=== PATIENT | female | born 1955 | race African-American/Black ===

== ENCOUNTER 2018-08-04 02:52 | Inpatient (IN) | payer OTHER ==
[2018-08-04] VITALS (7 sets, daily range): BP systolic 165–241; BP diastolic 81–130
[~2018-08-04] VITALS: Ht 149.9 cm; Wt 86.6 kg
[2018-08-04] MEDS ORDERED: COZAAR 25 MG TA25 M1 PO (02:59)
[2018-08-04 05:03] LABS: ABSOLUTE NEUTROPHILS 4.7 thou/uL (1.4-8.2); BASOPHILS 0.4 % (0.0-2.0); EOSINOPHILS 1.6 % (0.0-3.0); HEMATOCRIT 34.2 % (37.0-47.0); HEMOGLOBIN 11.5 gm/dL (12.0-15.0); LYMPHOCYTES 12.5 % (24.0-44.0); MCH 27.6 pg (26.0-34.0); MCHC 33.6 g/dL (28.0-37.0); MONOCYTES 9.2 % (1.0-8.0); PLATELET COUNT 240 thou/uL (150-400); POLYS 76.3 % (36.0-66.0); RBC 4.17 mil/uL (4.20-5.00); RDW 14.7 % (10.5-14.5); WBC 6.1 thou/uL (4.0-11.0)
[2018-08-04 05:10] LABS: CALCIUM 9.4 mg/dL (8.5-10.1); CREATININE 2.2 mg/dL (0.6-1.0); POTASSIUM 3.8 mmol/L (3.5-5.1)
[2018-08-04 05:18] LABS: TROPONIN-I 0.06 ng/mL (<0.06)
--- NOTE | 2018-08-04 07:33 | NUR ---
ATTEMPTED TO CALL REPORT AGAIN. FLOOR NURSE STATES THEY ARE STILL IN REPORT AND UNABLE TO TAKE ER REPORT AT THIS TIME. WILL CALL AGAIN IN 10 MINUTES.
--- NOTE | 2018-08-04 08:20 | NUR ---
REPORT CALLED TO HERBERT VILLARREAL. PT GOING TO CCU ROOM 204.
[2018-08-04 09:24] LABS: % SATURATION 18 % (20-39); IRON 36 ug/dL (50-170); TIBC 200 ug/dL (250-450)
--- NOTE | 2018-08-04 12:24 | 2DMMODE ---
[facility] [address] [place] [address] 2 D/M-MODE ECHOCARDIOGRAM Name: LOLAANDREW A Room #: 204-P ADM IN ..#: [id number] ������������� Admission: 08/04/18 ������������� Attend Phys: Andressa Whelan Discharge: ��� ������������� ��� Date of : 59 Date of Service: 08/04/18 1224 �� Report #: [id number] �������� ��������������������������������������������[id number] THIS REPORT FOR: //name// APPROVED REPORT Study performed: 08/04/2018 11:18:11 EXAM: Comprehensive 2D, Doppler, and color-flow Echocardiogram Patient Location: Bedside Room #: 204 Status: routine BSA: 1.76 HR: 91 bpm BP: 169/90 mmHg Rhythm: NSR Other Information Study Quality: Good Indications Hypertension/HDD 2D Dimensions RVDd: 47.45 mm IVSd: 15.48 (7-11mm) LVOT Diam: 19.24 (18-24mm) LVDd: 43.92 mm PWd: 13.69 (7-11mm) Ascending Ao: 32.73 (22-36mm) LVDs: 27.59 (25-40mm) Aortic Root: 28.95 mm IVC: 16.00 mm Volumes Left Atrial Volume (Systole) Single Plane 4CH: 86.24 mL Single Plane 2CH: 55.76 mL LA ESV Index: 42.00 mL/m2 Aortic Valve AoV Peak Winston.: 1.98 m/s AO Peak Gr.: 15.70 mmHg LVOT Max P.12 mmHg LVOT Max V: 1.13 m/s MARY KAY Vmax: 1.66 cm2 Mitral Valve E/A Ratio: 1.9 MV Decel. Time: 128.64 ms MV E Max Winston.: 1.03 m/s [facility] [address] [place] [address] 2 D/M-MODE ECHOCARDIOGRAM Name: ANDREW DAVILA Room #: 204-P [facility] IN [facility]#: [id number] ������������� Admission: 08/04/18 ������������� Attend Phys: Andressa Whelan Discharge: ��� ������������� ��� Date of : 59 Date of Service: 08/04/18 1224 �� Report #: [id number] �������� ��������������������������������������������[id number] MV A Winston.: 0.55 m/s MV PHT: 37.30 ms IVRT: 55.36 ms Pulmonary Valve PV Peak Winston.: 1.09 m/s PV Peak Gr.: 4.79 mmHg Tricuspid Valve TR Peak Winston.: 2.84 m/s TR Peak Gr.: 32.23 mmHg PA Pressure: 37.00 mmHg Left Ventricle The left ventricle is normal size. Mild to moderate concentric left ventricular hypertrophy. Mild concentric left ventricular hypertrophy. The left ventricular systolic function is normal. The left ventricular ejection fraction is within the normal range. LVEF is 55-60%. Moderate diastolic dysfunction is present (pseudonormal filling). Right Ventricle Right ventricle is dilated. The right ventricular systolic function is normal. Atria Left atrium is dilated. Right atrium is dilated. Aortic Valve The aortic valve is normal in structure. No aortic regurgitation is present. There is no aortic valvular stenosis. Mitral Valve The mitral valve is normal in structure. Mild mitral regurgitation. No evidence of mitral valve stenosis. Tricuspid Valve The tricuspid valve is normal in structure. Mild tricuspid regurgitation. Pulmonic Valve The pulmonary valve is normal in structure. Trace pulmonic regurgitation. Great Vessels The aortic root is normal in size. IVC is normal in size and collapses >50% with inspiration. [facility] [address] [place] [address] 2 D/M-MODE ECHOCARDIOGRAM Name: ANDREW DAVILA Room #: 204-P [facility] IN [facility].#: [id number] ������������� Admission: 08/04/18 ������������� Attend Phys: Andressa Whelan Discharge: ��� ������������� ��� Date of : 59 Date of Service: 08/04/18 1224 �� Report #: [id number] �������� ��������������������������������������������[id number] Pericardium There is no pericardial effusion. <Conclusion> The left ventricle is normal size. LVEF is 55-60%. Right ventricle is dilated. Left atrium is dilated. Right atrium is dilated. The mitral valve is normal in structure. Mild mitral regurgitation. The tricuspid valve is normal in structure. Mild tricuspid regurgitation. The pulmonary valve is normal in structure. Trace pulmonic regurgitation. There is no pericardial effusion. ��������������������������������������������� <ELECTRONICALLY SIGNED> ���������������������������������������� By: To Ortiz MD ��������������������������������������������� 08/04/18 1224 1224 1224 To Ortiz MD /INF
--- NOTE | 2018-08-04 18:18 | NUR ---
VSS REMAINS NSR, PT NOW OFF CARDENE, BP REMAINS 165-172/90-99, DR TOMAS AWARE. LUNGS CLEAR, RA SAT IS 94%. UP IN ROOM WITHOUT DIFFICULTY. WILL CONTINUE TO MONITER AND CARE FOR PT PER PLAN OF CARE
[2018-08-05 03:18] LABS: ABSOLUTE NEUTROPHILS 6.5 thou/uL (1.4-8.2); BASOPHILS 0.8 % (0.0-2.0); EOSINOPHILS 1.6 % (0.0-3.0); HEMATOCRIT 33.8 % (37.0-47.0); HEMOGLOBIN 11.2 gm/dL (12.0-15.0); LYMPHOCYTES 25.7 % (24.0-44.0); MCH 27.4 pg (26.0-34.0); MCHC 33.3 g/dL (28.0-37.0); MCV 82.2 fL (80.0-100.0); MONOCYTES 7.9 % (1.0-8.0); PLATELET COUNT 283 thou/uL (150-400); RBC 4.11 mil/uL (4.20-5.00); WBC 10.8 thou/uL (4.0-11.0)
[2018-08-05 03:24] LABS: CALCIUM 9.1 mg/dL (8.5-10.1); CREATININE 2.3 mg/dL (0.6-1.0); POTASSIUM 3.4 mmol/L (3.5-5.1)
--- NOTE | 2018-08-05 04:06 | NUR ---
PATIENTS CARES WERE ASSUMED AT SHIFT CHANGE. PATIENT WAS ASSESSED AND MEDS WERE PASSED. PATIENT HAS HAD A RESTFUL NIGHT. SLEPT MOST OF THIS SHIFT.HOURLY ROUNDING WAS DONE. THE BED IS IN A LOW AND LOCKED POSITION
[2018-08-05 04:20] VITALS: BP 180/110
--- NOTE | 2018-08-05 07:51 | EKG ---
[place] [address] [facility] [place] [address] ELECTROCARDIOGRAM REPORT Name: ANDREW DAVILA Room #: 204-P ADM IN M.R.#: [id number] ������������������ Admission: 08/04/18 ������������������ Attend Phys: Leighton Jacobs DO Discharge: ������������������ Date of : 59 Report #: [id number] ����������������������������������������������������������������� [id number] THIS REPORT FOR: //name// [facility] ED Test Date: 2018-08-04 Test Time: 03:11:07 Pat Name: ANDREW DAVILA Department: Room: [facility] Gender: F Assisted Living Executive Director: bora chopra : 1955 Requested By: Adrian Trammell Order Number: [id number] MD: Anthony Haney Measurements Intervals [place] Rate: 105 P: 60 TX: 166 QRS: -11 QRSD: 100 T: 112 QT: 354 QTc: 468 Interpretive Statements Sinus tachycardia Right atrial abnormality Compared to ECG 11/25/2006 14:26:06 Nonspecific change in the ST and T-wave segments Electronically Signed On 08-05-2018 7:51:46 CDT by Anthony Haney [email or web address] ��������������������������������������������� <ELECTRONICALLY SIGNED> ���������������������������������������� By: Anthony Haney MD, [facility] ��������������������������������������������� 08/05/18 075 0 0 Anthony Haney MD, [facility] /EPI
[2018-08-05 08:20] VITALS: BP 189/115
--- NOTE | 2018-08-05 08:52 | H ---
[facility] [place] [address] [place] [address] HISTORY AND PHYSICAL Name: ANDREW DAVILA Room #: 204-P ADM IN M.R.#: [id number] Admission: 08/04/18 ������������������ Attend Phys: Leighton Jacobs DO Discharge: ������������������ Date of : 59 Report #: [id number] THIS REPORT FOR: //name// CC: Leighton Nuñez MD DATE OF SERVICE: 08/04/2018 ROOM: 204. HISTORY OF PRESENT ILLNESS: This 63-year-old black female who was admitted through the Emergency Room with accelerated hypertension, shortness of breath and pulmonary edema. She says she ran out of losartan a week ago and for the last 2 days has been having exertional dyspnea, especially when she tries to walk steps. Her past history included hypertension, but no previous hospitalizations other than for 2 pregnancies, one miscarriage and one D and C. MEDICATIONS ON ADMISSION: Losartan 50 mg daily. ALLERGIES: None. SYSTEM REVIEW: She works for a [employer] service, has to walk steps daily. Denies. surgeries other than D and C. Denies history of diabetes, previous heart disease, kidney disease, ulcers, female disease or arthritis. SOCIAL HISTORY: Lives alone. Her son comes to visit her. She does not smoke. She drinks wine occasionally and drinks 2 cups of caffeine daily, also does eat some salt. PHYSICAL EXAMINATION: GENERAL: Currently a pleasant, overweight black female, alert and in no distress. VITAL SIGNS: Initial BP was 252/156, currently 151/77. Pulse 104, respirations 19, temperature afebrile. HEAD: No rash or trauma. EARS, NOSE AND THROAT: No lesions. EYES: No icterus. NECK: Supple, without bruits. LUNGS: Clear. Cough is dry. HEART: Rhythm regular, without definite gallop. BREASTS: No masses. ABDOMEN: Obese, soft, without mass or tenderness. EXTREMITIES: No edema or cyanosis. NEUROLOGIC: She is up on her feet without difficulty or lateralized deficits. [facility] [address] [place] [address] HISTORY AND PHYSICAL Name: ANDREW DAVILA Room #: [facility] IN [facility].#: [id number] Admission: 08/04/18 ������������������ Attend Phys: Leighton Jacobs, DO Discharge: ������������������ Date of : 59 Report #: [id number] She is alert and very pleasant. Chest x-ray shows mild pulmonary edema and cardiomegaly. LABORATORY DATA: Hemoglobin 11.5, MCV 82. White count 6000, platelets 240,000. Sodium 143, potassium 3.8, CO2 of 28, BUN 35, creatinine 2.2, blood sugar 108, calcium 9.4. Troponin 0.06. BNP 8400. IMPRESSION: 1. Accelerated hypertension with pulmonary edema. 2. Obesity. PLAN: I have asked Cardiology to see to help with blood pressure management. We will plan on repeating renal parameters in the morning. The patient says she saw Dr. Nuñez a month ago, at which time her blood pressure was stable, but she ran out of her blood pressure pills a week ago. PROGNOSIS: Guarded. ��������������������������������������������� <ELECTRONICALLY SIGNED> ���������������������������������������� By: Leighton Jacobs DO ��������������������������������������������� 08/05/18 0852 0940 Leighton Jacobs DO /nt
--- NOTE | 2018-08-05 11:23 | NUR ---
Assumed pt care this am, pt was out of the room for her US Renal and doppler exam. Pt is up at aroldo and walked the halls. seen by MD additional medication given for BP to continue monitoring through out the day. No signs or verbalizations of distress have been noted. POC followed
[2018-08-05 11:29] VITALS: BP 188/117
[2018-08-05 20:00] VITALS: BP 180/95
[2018-08-06] VITALS: BP 178/106
[2018-08-06 03:51] LABS: HEMOGLOBIN 12.1 gm/dL (12.0-15.0)
[2018-08-06 03:53] LABS: HEMATOCRIT 35.9 % (37.0-47.0); MCH 27.6 pg (26.0-34.0); MCHC 33.6 g/dL (28.0-37.0); MCV 82.1 fL (80.0-100.0); RBC 4.37 mil/uL (4.20-5.00); RDW 14.9 % (10.5-14.5)
[2018-08-06 04:00] VITALS: BP 170/90
[2018-08-06 04:04] LABS: CALCIUM 9.2 mg/dL (8.5-10.1); CREATININE 2.6 mg/dL (0.6-1.0); POTASSIUM 3.8 mmol/L (3.5-5.1)
--- NOTE | 2018-08-06 04:58 | NUR ---
PATIENTS CARES WEE ASSUMED AT SHIFT CHANGE.PATIENT WAS ASSESSED AND MEDS WERE PASSED. PATIENT CONCERNED FOR HERSELF DUE TO HER PRESSUERS BEING HIGH AGAIN. THIS PATIENT HAD A RESTFUL NIGHT. HOURLY ROUNDING WAS DONE, THE BED IS IN A LOW AND LOCHED POSITION.
[2018-08-06 08:44] VITALS: BP 192/112
[2018-08-06 12:34] VITALS: BP 170/80
[2018-08-06 12:49] LABS: URINE BILIRUBIN NEGATIVE (Negative); URINE BLOOD TRACE (Negative); URINE CLARITY CLEAR; URINE COLOR YELLOW; URINE GLUCOSE-RANDOM* NEGATIVE (Negative); URINE KETONES NEGATIVE (Negative); URINE LEUKOCYTES NEGATIVE (Negative); URINE NITRITE NEGATIVE (Negative); URINE PROTEIN (DIPSTICK) NEGATIVE (Negative); URINE UROBILINOGEN 0.2 E.U./dl (0.2-1.0)
[2018-08-06 12:51] LABS: PROT/CREAT RATIO 0.3; URINE CREATININE-RANDOM* 58.1 mg/dL; URINE PROTEIN-RANDOM* 19.5 mg/dL (<11.9)
--- NOTE | 2018-08-06 14:23 | NUR ---
ASSESSMENT CHARTED. PT ALERT AND ORIENTED. HAD HB THIS SHIFT. SCHEDULED BP AND PRN BP MEDS GIVEN. SEEN BY DR. MARTÍNEZ. ORDERS NOTED. DENIED HAVING PAIN OR DISCOMFORT. WILL CONTINUE TO MONITOR.
--- NOTE | 2018-08-06 14:46 | NUR ---
Connie liason here this am for pt pay referral. They spoke with the pt and she was able to provide them ins information. Admitting/UR have verified that the pt has a commerical plan through [facility]. Her Pcp is Dr. Nuñez. No cm interventions indicated at this time. Will remain available should needs arise.
[2018-08-06 16:00] VITALS: BP 191/106
[2018-08-06 19:44] VITALS: BP 132/68
[2018-08-07 00:05] LABS: COMPLEMENT-C4 39 mg/dL (14-44)
[2018-08-07 04:28] VITALS: BP 162/93
--- NOTE | 2018-08-07 05:34 | NUR ---
END OF SHIFT SUMMARY: Pt has had quiet night. SBP has remained < 180 without prn meds given. Up ad aroldo in room. Diuresed well from Lasix given yesterday evening, 1800 cc output. Remains on room air. Monitor sinus rhythm, sinus chase, rates 54 to 64.
[2018-08-07 05:36] LABS: ALBUMIN 3.1 g/dL (3.4-5.0); CALCIUM 9.1 mg/dL (8.5-10.1); CREATININE 2.7 mg/dL (0.6-1.0); POTASSIUM 3.4 mmol/L (3.5-5.1)
[2018-08-07 08:23] VITALS: BP 178/98
[2018-08-07] MEDS ORDERED: NORVASC10 MG PO (09:19)
[2018-08-07] MEDS ORDERED: METOPROLOL SUCC50 MG PO (09:19)
[2018-08-07] MEDS ORDERED: TORSEMIDE10 MG PO (09:19)
[2018-08-07] MEDS ORDERED: IRON325 PO (09:19)
[2018-08-07] MEDS ORDERED: SPIRONOLACTONE25 M1 PO (09:19)
[2018-08-07 09:26] VITALS: BP 178/98
--- NOTE | 2018-08-07 10:38 | NUR ---
ASSESSMENT CHARTED. PT ALERT AND ORIENTED. HAD HIGH BP THIS AM. DR. MARTÍNEZ AWARE. SCHEDULED BP MEDS GIVEN. ORDERS GIVEN TO DISCHARGE PT TO HOME. DISCHARGE INSTRUCTIONS GIVEN TO PT. PT VERBERLIZE UNDERSTANDING.
--- NOTE | 2018-08-07 12:03 | HC ---
[facility] [address] CONSULTATION Name: ANDREW DAVILA Room #: 204-P [facility] IN M.R.#: [id number] Admission: 08/04/18 ������������������ Attend Phys: Leighton Jacobs DO Discharge: 08/07/18 ������������������ Date of : 59 Report #: [id number] THIS REPORT FOR: //name// CC: Leighton Jacobs Rolando Joaquin DATE OF SERVICE: 08/06/2018 REASON FOR CONSULTATION: Chronic kidney disease and elevated creatinine. HISTORY OF PRESENT ILLNESS: This is a 63-year-old patient who appears to have had long-standing and for the most part untreated hypertension, who presented with rather high blood pressures and back pain here a couple of days ago, first hospitalization. Blood pressures initially as high as 250/150, now falling to 180/100 currently. Previously, she had been on losartan at a small dose and no other medications. PAST MEDICAL HISTORY: Really pretty much unremarkable. She has had no prior hospitalizations. She has had no cardiac complications and has no known previous history of renal insufficiency. She has had no dysuria or infections. She has had no hematuria or renal stones. FAMILY HISTORY: Both sisters have hypertension. She does not know about her parents. SOCIAL HISTORY: No cigarettes, occasional alcohol. Works in an office, eats a very salty diet. REVIEW OF SYSTEMS: GENERAL: She has felt reasonably well, except for this back pain. SKIN: No skin rashes have been noted. EYES: Her vision has been okay. ENT: Hearing okay, swallows okay. No mouth sores. ENDOCRINE: Negative for diabetes and thyroid disease. RESPIRATORY: Occasional exertional dyspnea. CARDIAC: No chest pain, angina, heart failure or palpitations. GASTROINTESTINAL: No nausea, vomiting, diarrhea or bloody stools. GENITOURINARY: Good stream, without dysuria. NEUROLOGIC: No seizure, syncope or stroke. No history of neuropathy. MUSCULOSKELETAL: She has had the low back pain. PHYSICAL EXAMINATION: GENERAL: This is a reasonably well-appearing, somewhat overweight patient, in no acute distress. SKIN: No lesions are noted. SKELETAL: Well developed, well nourished. [facility] [address] [place] [address] CONSULTATION Name: ANDREW DAVILA Madhu Room #: 204-P [facility] IN .R.#: [id number] Admission: 08/04/18 ������������������ Attend Phys: Leighton Jacobs DO Discharge: 08/07/18 ������������������ Date of : 59 Report #: [id number] HEENT: Extraocular movements are full. No scleral icterus. Hearing and vision are intact. Mucous membranes are moist. NECK: Supple, without carotid bruits. CHEST: Clear to auscultation. HEART: Regular. ABDOMEN: Soft and nontender, without bruits, masses or organomegaly. EXTREMITIES: Show trace ankle edema. Peripheral pulses intact. NEUROLOGIC: Intact. LABORATORY DATA: Urinalysis has not been done. Urine chemistries have not been done. Hemoglobin is 12. Sodium 137, potassium 3.8, chloride 103, bicarbonate 25 and creatinine 2.6. ASSESSMENT AND PLAN: Chronic kidney disease. She rather clearly has long-standing hypertension, virtually untreated, with hypertensive nephrosclerosis and chronic kidney disease. For completeness of evaluation, we will include urine studies and paraprotein studies and depending on the look of the urinalysis, possibly serological studies as well, although this is almost certainly a natural history of virtually untreated long-standing hypertension. I will add more effective diuresis. She is on a beta kee and a calcium kee and of course, we now want to bring her blood pressure down too quickly as she presented with such high pressures. ��������������������������������������������� <ELECTRONICALLY SIGNED> ���������������������������������������� By: Carlos Cruz MD ��������������������������������������������� 08/07/18 1203 1101 1316 Carlos Cruz MD /nt
[2018-08-07 12:06] LABS: KAPPA FREE LIGHT CHAINS 122.2 mg/L (3.3-19.4); KAPPA/LAMBDA RATIO 3.04 (0.26-1.65); LAMBDA FREE LIGHT CHAINS 40.2 mg/L (5.7-26.3)
[2018-08-07 13:08] LABS: ANA INTERPRETATION Negative (Negative)
--- NOTE | 2018-08-09 07:03 | D ---
[facility] [place] [address] DISCHARGE SUMMARY Name: ANDREW DAVILA Room #: 204-P [facility] IN M.R.#: [id number] Admission: 08/04/18 ������������������ Attend Phys: Leighton Jacobs, Discharge: 08/07/18 ������������������ Date of : 59 Report #: [id number] THIS REPORT FOR: //name// CC: Leighton Cruz MD DATE OF SERVICE: 08/07/2018 HOSPITAL COURSE: This 63-year-old black female of Dr. Nuñez was admitted through the Emergency Room with malignant hypertension, pulmonary edema and dyspnea. The patient states she ran out of her losartan a week before admission and then for 2 days prior to admission, started developing exertional dyspnea, especially when she tried to walk up any steps. PAST MEDICAL HISTORY: Her past history included hypertension, 2 pregnancies, one miscarriage followed by D and C and she thought she had normal kidney function. MEDICATIONS: The only medication on admission was losartan 50 mg. SOCIAL HISTORY: She admitted to eating a lot of salt on her food. No alcohol or caffeine. PHYSICAL EXAMINATION: Initial physical exam in the Emergency Room: GENERAL: Revealed a black female. VITAL SIGNS: Blood pressure of 252/156. She was given hydralazine and it did come down to 151/77. She is afebrile. HEAD AND NECK: Negative. LUNGS: Clear. CARDIAC EXAMINATION: Revealed no definite gallop. ABDOMEN: Soft and obese. EXTREMITIES: Had no edema. NEUROLOGIC: Revealed no lateralizing neurologic deficits. The patient was very alert and pleasant. LABORATORY DATA: Initial chest x-ray showed pulmonary edema and cardiomegaly. Hemoglobin 11.5, MCV 82 and white count 6000. Sodium 143, potassium 3.8, CO2 of 28, BUN 35, creatinine 2.2, blood sugar 108 and calcium 9.4. BNP 8400. The patient was admitted on telemetry and seen in consult by Dr. Koroma of Cardiology and Dr. Cruz of Nephrology. Her blood pressure stabilized at 178/98 with several new medications being started. Her final hemoglobin was 12 grams, white count 13,000. Sodium 139, potassium 3.4, CO2 of 30, BUN 56, creatinine 2.7, estimated GFR 22 and blood sugar 95. Phosphorus 5.0. Iron saturation was low at 18. Serum protein electrophoresis is pending at this time and if it [address] [address] DISCHARGE SUMMARY Name: ANDREW DAVILA Room #: 204-P [facility] IN .R.#: [id number] Admission: 08/04/18 ������������������ Attend Phys: Leighton Jacobs DO Discharge: 08/07/18 ������������������ Date of : 59 Report #: [id number] comes back significant, I will dictate an addendum. On 08/07/2018, Dr. Cruz and Cardiology thought the patient was clinically stable to return home for further blood pressure monitoring. She is to get her own digital monitor and see Dr. Anthony in 1 week. DISCHARGE MEDICATIONS: Discharge regime is a 2-gram sodium diet, torsemide 10 mg daily, spironolactone 25 mg daily, ferrous sulfate 325 mg daily, metoprolol succinate 100 mg daily and amlodipine 10 mg daily. 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 FINAL DIAGNOSES: 1. Malignant hypertension with pulmonary edema. 2. Chronic kidney disease stage 4. 3. Iron deficiency ��������������������������������������������� <ELECTRONICALLY SIGNED> ���������������������������������������� By: Leighton Jacobs DO ��������������������������������������������� 08/09/18 0703 0715 1317 Leighton Jacobs DO /nt
[2018-08-11 13:09] LABS: GLOBULIN TOTAL 3.7 g/dL (2.2-3.9); M-SPIKE Not Observed g/dL (Not Observed)
== END 2018-08-07 11:18 | disposition home or self-care (01) | DRG 683 ==
LOC: ER 02:52 → EROBS 06:26 → 2N 06:26 → ENTRNSPT 08-07 11:02 → 2N 08-07 11:18
PROVIDERS: Emergency Medicine; Internal Medicine Nephrology; ADMIT Internal Medicine
DX: N17.9 Acute kidney failure, unspecified (principal); I16.1 Hypertensive emergency; J81.1 Chronic pulmonary edema; N18.4 Chronic kidney disease, stage 4 (severe); I12.9 Hypertensive chronic kidney disease with stage 1 through stage 4 chronic kidney disease, or unspecified chronic kidney disease; E61.1 Iron deficiency; E66.9 Obesity, unspecified; Z68.38 Body mass index [BMI] 38.0-38.9, adult; Z79.899 Other long term (current) drug therapy; Z82.49 Family history of ischemic heart disease and other diseases of the circulatory system
CPT/HCPCS: 10081